=== PATIENT | female | born 1985 | race Caucasian/White ===

== ENCOUNTER 2018-03-03 06:52 | Day surgery (SDC) | payer OTHER ==
[2018-03-03] MEDS ORDERED: PROPOFOL 40 ML (08:05)
[2018-03-03] MEDS ORDERED: PROPOFOL 20 ML (08:54)
== END 2018-03-03 11:52 | disposition home or self-care (01) ==
LOC: GIL 06:52
DX: Q27.33 Arteriovenous malformation of digestive system vessel (principal); K21.0 Gastro-esophageal reflux disease with esophagitis; E66.9 Obesity, unspecified; Z68.30 Body mass index [BMI] 30.0-30.9, adult
CPT/HCPCS: 43239; 84703; 88305; 88312